=== PATIENT | female | born 1975 | race African-American/Black ===

== ENCOUNTER → 2016-06-24 | Outpatient (CLI) | payer OTHER | LOC: MC.RAD 09:20 | DX: Z12.31 Encounter for screening mammogram for malignant neoplasm of breast (principal) ==

== ENCOUNTER → 2023-12-08 | Outpatient (CLI) | payer OTHER | LOC: MC.RAD 09:40 | DX: Z12.31 Encounter for screening mammogram for malignant neoplasm of breast (principal) ==